=== PATIENT | male | born 1975 | race Two or more races ===

== ENCOUNTER 2018-03-03 20:46 | Inpatient (IN) | payer MEDICAID, OTHER ==
[~2018-03-03] VITALS: Ht 172.7 cm; Wt 103.1 kg
[2018-03-03 22:04] LABS: Basophils # (auto) 0 uL; Basophils % (auto) 0.2 % (0.0-2.0); Eosinophils # (auto) 0.2 uL; Eosinophils % (auto) 1.6 % (0.0-7.0); Hemoglobin 14.1 g/dL (13.5-17.5); Lymphocytes # (auto) 2.5 uL; Lymphocytes % (auto) 21.1 % (10.0-50.0); Mean Corpuscular Hemoglobin 29.9 pg (28.0-32.0); Mean Corpuscular Hgb Conc. 33.5 g/dL (32.0-36.0); Mean Corpuscular Volume 89.3 fL (80.0-100.0); Monocytes # (auto) 0.9 uL; Monocytes % (auto) 7.5 % (0.0-12.0); Neutrophils # (auto) 8.1 uL; Neutrophils % (auto) 69.6 % (37.0-80.0); Nucleated Red Blood Cells % 0.1 %; Platelet Count (auto) 308 10^3/uL (140-450); Red Blood Cells 4.71 10^6/uL (4.5-5.90); Red Cell Distribution Width 15.2 % (11.8-14.3); White Blood Cell 11.6 10^3/uL (4.4-10.8)
[2018-03-03 22:14] LABS: Alanine Aminotransferase 40 U/L (16-61); Albumin 4.3 g/dL (3.4-5.0); Alkaline Phosphatase 60 U/L (45-117); Anion Gap 12 (5-15); Aspartate Aminotransferase 25 U/L (15-37); BUN/Creatinine Ratio 11.5; Bilirubin, Total 0.5 mg/dL (0.2-1.0); Blood Urea Nitrogen 41 mg/dL (7-18); Calcium 9.5 mg/dL (8.5-10.1); Carbon Dioxide 21 mmol/L (21-32); Chloride 101 mmol/L (98-107); GFR African American 24 mL/min; GFR Non-African American 20 mL/min; Glucose 151 mg/dL (74-106); Sodium 134 mmol/L (136-145)
[2018-03-04] MEDS ORDERED: ACETAMINOPHEN 325 MG TAB PO PRN (03:00)
[2018-03-04] MEDS ORDERED: DEXTROSE (50%) 50ML SYRG IV PRN (03:00)
[2018-03-04] MEDS ORDERED: TEMAZEPAM 15 MG CAP PO PRN (03:00)
[2018-03-04] MEDS ORDERED: HYDROcodone-ACET 5/325MG TAB PO PRN (03:00)
[2018-03-04] MEDS ORDERED: ONDANSETRON HCL 4 MG/2 ML VIAL IV PRN (03:00)
[2018-03-04 03:46] LABS: Urine Bacteria FEW /hpf (None Seen); Urine Blood Negative /uL (Negative); Urine Hyaline Cast MANY /lpf (0 - 2); Urine Mucus FEW (None Seen); Urine Specific Gravity 1.016 (1.001-1.035); Urine WBC 5 /hpf (0 - 3)
[2018-03-04] MEDS ORDERED: cefTRIAXone 1GM/10ml IVPUSH 10 ML IV ONE (04:00)
[2018-03-04 05:48] VITALS: BP 127/72
[2018-03-04] MEDS ORDERED: LISI-646 PO (06:16)
[2018-03-04] MEDS: ACCU-CHEK COMFORT CURVE STRIP VI SCH ×3 (06:32→17:02)
[2018-03-04] MEDS: InsuLIN REG 1unit/0.01ml Soln (100units/ml) SC SCH ×3 (06:32→17:02)
[2018-03-04] MEDS: PANTOPRAZOLE 40 MG TAB PO SCH (08:37)
[2018-03-04 09:00] VITALS: BP 124/67
[2018-03-04 12:39] LABS: INR 0.98 (0.9-1.15); Partial Thromboplastin Time 27.8 sec (23.78-33.04); Prothrombin Time 10.5 sec (9.27-12.13)
[2018-03-04 12:41] LABS: BUN/Creatinine Ratio 22.9; Calcium 9.2 mg/dL (8.5-10.1); Potassium 4.6 mmol/L (3.5-5.1)
[2018-03-04 12:44] LABS: Bilirubin, Total 0.5 mg/dL (0.2-1.0); Total Protein 8.1 g/dL (6.4-8.2)
[2018-03-04 13:00] VITALS: BP 118/75
[2018-03-04 13:10] LABS: Phosphorus 3.2 mg/dL (2.5-4.90); Uric Acid 5.2 mg/dL (3.5-7.2)
[2018-03-04] MEDS: SODIUM CHLORIDE 0.9% 1,000 ML IV SCH (13:11)
[2018-03-04 13:14] LABS: Basophils # (auto) 0 uL; Basophils % (auto) 0.3 % (0.0-2.0); Eosinophils # (auto) 0.1 uL; Eosinophils % (auto) 2.2 % (0.0-7.0); Hematocrit 41.8 % (41.0-53.0); Hemoglobin 14.1 g/dL (13.5-17.5); Lymphocytes # (auto) 1.9 uL; Lymphocytes % (auto) 28.9 % (10.0-50.0); Mean Corpuscular Hemoglobin 29.9 pg (28.0-32.0); Mean Corpuscular Hgb Conc. 33.6 g/dL (32.0-36.0); Mean Corpuscular Volume 88.8 fL (80.0-100.0); Monocytes # (auto) 0.3 uL; Monocytes % (auto) 4.6 % (0.0-12.0); Neutrophils # (auto) 4.3 uL; Nucleated Red Blood Cells % 0.1 %; Platelet Count (auto) 280 10^3/uL (140-450); Red Blood Cells 4.71 10^6/uL (4.5-5.90); Red Cell Distribution Width 15.2 % (11.8-14.3); White Blood Cell 6.7 10^3/uL (4.4-10.8)
[2018-03-04 13:39] LABS: % Iron Saturation 21.7 % (20-55)
[2018-03-04 14:12] LABS: Urine Bacteria NONE SEEN /hpf (None Seen); Urine Blood Negative /uL (Negative); Urine Specific Gravity 1.008 (1.001-1.035); Urine WBC 2 /hpf (0 - 3)
[2018-03-04 14:27] LABS: Creatinine, Urine 43 mg/dL (30.0-125.0); Protein, Urine < 5.0 mg/dL (0.0-11.9); Sodium Urine 23 mmol/L (40-220)
[2018-03-04 14:32] LABS: Alcohol, Urine < 3.0 mg/dL (0-5); Amphetamine Screen, Urine NEGATIVE (NEGATIVE); Barbiturate Scree,Urine NEGATIVE (NEGATIVE); Benzodiazephine Screen, Urine NEGATIVE (NEGATIVE); Cannabinoid Screen, Urine NEGATIVE (NEGATIVE); Cocaine Screen, Urine NEGATIVE (NEGATIVE); Opiate Scree,Urine NEGATIVE (NEGATIVE); Phencyclidine Screen, Urine NEGATIVE (NEGATIVE)
[2018-03-04] MEDS ORDERED: PANT40TA2 PO (15:11)
[2018-03-04] MEDS ORDERED: ATO40T PO (15:11)
[2018-03-04] MEDS ORDERED: FENO160T8 PO (15:11)
[2018-03-04] MEDS ORDERED: LORA-622 PO (15:11)
[2018-03-04] MEDS ORDERED: ASP81EC PO (15:11)
[2018-03-04 16:37] VITALS: BP 135/91
[2018-03-04] MEDS ORDERED: METF-370 PO (20:09)
[2018-03-04 22:00] VITALS: BP 108/64
[2018-03-04] MEDS ORDERED: ATORVASTATIN 20 MG TAB PO SCH (22:00)
[2018-03-05] MEDS: SODIUM CHLORIDE 0.9% 1,000 ML IV SCH (00:05)
[2018-03-05] MEDS: ACCU-CHEK COMFORT CURVE STRIP VI SCH ×3 (00:11→12:00)
[2018-03-05 05:00] VITALS: BP 117/63
[2018-03-05] MEDS: InsuLIN REG 1unit/0.01ml Soln (100units/ml) SC SCH ×3 (05:25→12:00)
[2018-03-05 06:00] LABS: Basophils # (auto) 0 uL; Basophils % (auto) 0.2 % (0.0-2.0); Eosinophils # (auto) 0.2 uL; Eosinophils % (auto) 2.5 % (0.0-7.0); Hematocrit 39.1 % (41.0-53.0); Hemoglobin 12.7 g/dL (13.5-17.5); Lymphocytes # (auto) 2.6 uL; Lymphocytes % (auto) 36.9 % (10.0-50.0); Mean Corpuscular Hemoglobin 28.9 pg (28.0-32.0); Mean Corpuscular Hgb Conc. 32.4 g/dL (32.0-36.0); Monocytes # (auto) 0.5 uL; Monocytes % (auto) 6.6 % (0.0-12.0); Neutrophils # (auto) 3.8 uL; Neutrophils % (auto) 53.8 % (37.0-80.0); Platelet Count (auto) 249 10^3/uL (140-450); Red Blood Cells 4.39 10^6/uL (4.5-5.90); Red Cell Distribution Width 15.1 % (11.8-14.3)
[2018-03-05 06:13] LABS: Albumin 3.4 g/dL (3.4-5.0); BUN/Creatinine Ratio 25.4; Bilirubin, Total 0.5 mg/dL (0.2-1.0); Calcium 8.4 mg/dL (8.5-10.1); Potassium 4.6 mmol/L (3.5-5.1); Total Protein 6.7 g/dL (6.4-8.2)
[2018-03-05 08:00] VITALS: BP 105/63
[2018-03-05 09:00] VITALS: BP 105/63
[2018-03-05] MEDS ORDERED: cefTRIAXone 1GM/10ml IVPUSH 10 ML IV SCH (09:00)
[2018-03-05] MEDS: PANTOPRAZOLE 40 MG TAB PO SCH (10:54)
[2018-03-05 13:00] VITALS: BP 133/69
== END 2018-03-05 13:20 | disposition home or self-care (01) | DRG 922 ==
LOC: EDBD 20:46 → ER 20:55 → OVERFLOW 20:56 → WEST WING 03-04 05:35
PROVIDERS: ADMIT Nurse Practitioner; ATTEND Internal Medicine
DX: T67.0XXA Heatstroke and sunstroke, initial encounter (principal); N17.0 Acute kidney failure with tubular necrosis; N39.0 Urinary tract infection, site not specified; E11.22 Type 2 diabetes mellitus with diabetic chronic kidney disease; E78.5 Hyperlipidemia, unspecified; E86.0 Dehydration; I12.9 Hypertensive chronic kidney disease with stage 1 through stage 4 chronic kidney disease, or unspecified chronic kidney disease; N18.2 Chronic kidney disease, stage 2 (mild); J01.00 Acute maxillary sinusitis, unspecified; E66.01 Morbid (severe) obesity due to excess calories; Y93.89 Activity, other specified; Y92.89 Other specified places as the place of occurrence of the external cause; Y99.8 Other external cause status; X30.XXXA Exposure to excessive natural heat, initial encounter; Z83.3 Family history of diabetes mellitus; Z79.82 Long term (current) use of aspirin; Z68.34 Body mass index [BMI] 34.0-34.9, adult
CPT/HCPCS: 36415; 70450; 74176; 76775; 80053; 80061; 80307; 81001; 82306; 82570; 82962; 83036; 83540; 83550; 83970; 84100; 84156; 84300; 84484; 84550; 85025; 85610; 85730; 93005; 96361; 96374; J0696; J1815